=== PATIENT | male | born 1970 | race Caucasian/White ===

== ENCOUNTER 2022-07-06 14:19 | Outpatient (CLI) | payer OTHER, SELFPAY ==
--- NOTE | 2022-07-06 14:24 | US_ITS ---
WS: [id number] ULTRASOUND SOFT TISSUES LEFT inner thigh. HISTORY: LEFT GROIN MASS COMPARISON: None available. TECHNIQUE: 2-D and color Doppler imaging is submitted. Ultrasound directed to the area of concern by the patient. Images are marked LEFT inner thigh near th e groin. No soft tissue abnormality is identified. There are a few benign-appearing lymph nodes. Ther e is no cystic mass or solid mass or increased vascularity. No superficial tract. US/US soft tissue/extremity [id number] IMPRESSION: Negative ultrasound LEFT inner thigh.
== END 2022-07-06 14:20 | disposition home or self-care (01) ==
LOC: RAD 14:21
PROVIDERS: PCP Family Medicine; Visit Provider Family Medicine
DX: R19.09 Other intra-abdominal and pelvic swelling, mass and lump (principal)
CPT/HCPCS: 76882

== ENCOUNTER 2022-10-13 14:29 | Outpatient (CLI) | payer OTHER, SELFPAY ==
--- NOTE | 2022-10-13 14:53 | MR_ITS ---
WS: [id number] MRI PELVIS with and without CONTRAST. COMPARISON: Soft tissue ultrasound 07/06/2022. Multiplanar, multisequence imaging is performed with and without contrast. MultiHance 20 mL IV. History: Palpable mass medial LEFT side. Increasing in size. Marker is placed along the medial upper thigh at the area of concern by the patient. There is no unde rlying enhancing soft tissue mass identified. There are a few adjacent lymph nodes with the largest i n this region measuring 1.5 cm. This lymph node appears similar to other adjacent lymph nodes and may not be palpable. No soft tissue mass or enhancing mass is identified. There is a normal appearance of the soft tissues and muscles. Symmetric bilaterally. No marrow edema. Mild narrowing of the hip joints. No free fluid in the pelvis. No prostate gland enlargement. Visualized urinary bladder is negative. MR/MR pelvis wo/w con [id number] IMPRESSION: 1. No soft tissue mass in the medial upper LEFT thigh. There are a few adjacen t lymph nodes which are small and similar to other adjacent lymph nodes. Clinic ally if there is a mass surgical excision may be necessary. By imaging no suspi cious findings. 2. Small benign lymph nodes in the inguinal regions.
[2022-10-13] MEDS: gadobenate dimeglumine 20 mL vial IV (15:46)
== END 2022-10-13 14:30 | disposition home or self-care (01) ==
LOC: RAD 14:30
PROVIDERS: PCP Family Medicine; Visit Provider Family Medicine
DX: R19.09 Other intra-abdominal and pelvic swelling, mass and lump (principal)
CPT/HCPCS: 72197; A9577